=== PATIENT | female | born 1995 | race Caucasian/White ===

== ENCOUNTER 2017-12-29 19:52 | Emergency (ER) | payer OTHER ==
[~2017-12-29] VITALS: Ht 157.5 cm; Wt 100.5 kg
[~2017-12-29 19:52] MED LIST: DIAZ5 PO; IBUP-2070 PO
[2017-12-29 20:22] LABS: GLUCOSE,POINT OF CARE 142 MG/DL (70-110)
[2017-12-29] MEDS ORDERED: LEVO150C2 PO (20:25)
[2017-12-29] MEDS ORDERED: CITA40TA6 PO (20:25)
[2017-12-29] MEDS ORDERED: LISI-622 PO (20:25)
[2017-12-29] MEDS ORDERED: HYDR-4061 PO (20:25)
[2017-12-29] MEDS ORDERED: OMEP20CA10 PO (20:25)
[2017-12-29] MEDS ORDERED: METF10002 PO (20:25)
[2017-12-29 21:01] LABS: BASOPHILS % (AUTO) 0.5 % (0.0-2.0); EOSINOPHILS % (AUTO) 0.6 % (1.0-6.0); HEMATOCRIT 37.6 % (36-46); HEMOGLOBIN 12.3 g/dL (12.0-16.0); LYMPHOCYTES # (AUTO) 3.5 K/uL (1.0-4.8); LYMPHOCYTES % (AUTO) 21.9 % (22.0-44.0); MEAN CORPUSCULAR HEMOGLOBIN 26.3 pg (26.0-34.0); MEAN CORPUSCULAR HGB CONC 32.7 G/dL (31.0-37.0); MEAN CORPUSCULAR VOLUME 81 fL (80-100); MONOCYTES # (AUTO) 0.7 K/uL (0.1-1.0); MONOCYTES % (AUTO) 4.2 % (2.0-9.0); NEUTROPHILS # (AUTO) 11.7 K/uL (1.8-7.7); NEUTROPHILS % (AUTO) 72.8 % (40.0-70.0); PLATELET COUNT (AUTO) 278 K/uL (150-450); RED BLOOD CELL COUNT(AUTO) 4.67 MIL/uL (4.00-5.20); RED CELL DISTRIBUTION WIDTH 15.1 % (11.5-14.5)
[2017-12-29 21:12] LABS: ANION GAP 8 mmol/L (8-16); CALCIUM, TOTAL 8.9 mg/dL (8.8-10.5); CARBON DIOXIDE 28 mmol/L (22-29); CHLORIDE 101 mmol/L (98-107); CREATININE 0.75 mg/dL (0.60-1.30); GLOMERULAR FILTR. RATE CALC > 60 mL/min (>60); GLUCOSE,RANDOM 118 mg/dL (70-110); POTASSIUM 4.2 mmol/L (3.5-5.1); SODIUM SERUM 137 mmol/L (136-145); UREA NITROGEN, BLOOD 13 mg/dL (7-18)
[2017-12-29] MEDS ORDERED: KETOROLAC TROMETHAMINE 30 MG/ML VIAL IVP ONE (21:15)
[2017-12-29 21:18] LABS: ALANINE AMINOTRANSFERASE 32 U/L (12-78); ALBUMIN 3.7 g/dL (3.4-5.0); ALKALINE PHOSPHATASE 94 U/L (46-116); ASPARTATE AMINOTRANSFERASE 13 U/L (15-37); BILIRUBIN,TOTAL 0.2 mg/dL (0.1-1.0); TOTAL PROTEIN, SERUM 7.9 g/dL (6.4-8.2)
[2017-12-29] MEDS ORDERED: FentaNYL CITRATE-PF 100 MCG/2 ML VIAL IVP ONE (21:45)
[2017-12-29] MEDS ORDERED: BARIUM SULFATE 0.1% SUSPENSION 450 ML BOTTLE PO ONE (22:30)
[2017-12-29 22:34] LABS: APPEARANCE,URINE TURBID (CLEAR); BILIRUBIN,URINE NEGATIVE (NEGATIVE); GLUCOSE, URINE (UA) NEGATIVE (NEGATIVE); KETONES,URINE TRACE mg/dL (NEGATIVE); LEUKOCYTE ESTERASE ,URINE SMALL (NEGATIVE); NITRATE,URINE NEGATIVE (NEGATIVE); OCCULT BLOOD,URINE LARGE (NEGATIVE); PROTEIN,URINE POS 1+ (NEGATIVE); UROBILINOGEN,URINE 0.2 mg/dL (<=1.0)
[2017-12-29 22:34] LABS: APPEARANCE,URINE CLEAR (CLEAR); BILIRUBIN,URINE NEGATIVE (NEGATIVE); GLUCOSE, URINE (UA) NEGATIVE (NEGATIVE); KETONES,URINE NEGATIVE (NEGATIVE); LEUKOCYTE ESTERASE ,URINE NEGATIVE (NEGATIVE); NITRATE,URINE NEGATIVE (NEGATIVE); OCCULT BLOOD,URINE MODERATE (NEGATIVE); PROTEIN,URINE NEGATIVE (NEGATIVE); UROBILINOGEN,URINE 0.2 mg/dL (<=1.0)
[2017-12-29 22:59] LABS: RBC,URINE Full Field /HPF (0-2)
[2017-12-29] MEDS ORDERED: ONDANSETRON HCL 4 MG/2 ML VIAL IVP ONE (23:00)
[2017-12-29] MEDS ORDERED: HYDROmorphone 2 MG/ML SYRINGE IVP ONE (23:00)
[2017-12-29 23:01] LABS: WBC,URINE 0-2 /HPF (0-5)
[2017-12-29 23:02] LABS: BACTERIA,URINE Few /HPF (None Seen); SQUAMOUS EPITHELIAL CELL,UR Rare /LPF (None Seen)
[2017-12-29 23:09] LABS: BACTERIA,URINE Rare /HPF (None Seen); WBC,URINE None Seen /HPF (0-5)
[2017-12-29 23:10] LABS: SQUAMOUS EPITHELIAL CELL,UR Few /LPF (None Seen)
[2017-12-30 00:32] VITALS: BP 127/65
== END 2017-12-30 01:18 | disposition home or self-care (01) ==
LOC: EMS 19:53
DX: N92.1 Excessive and frequent menstruation with irregular cycle (principal); E03.9 Hypothyroidism, unspecified; E11.9 Type 2 diabetes mellitus without complications; I10 Essential (primary) hypertension; F17.210 Nicotine dependence, cigarettes, uncomplicated; Z91.013 Allergy to seafood; Z88.8 Allergy status to other drugs, medicaments and biological substances
CPT/HCPCS: 36415; 74176; 80053; 81001; 82962; 84703; 85025; 96374; 96375; 99285; J1170; J1885; J2405; J3010; Z7610